=== PATIENT | male | born 1930 | race Caucasian/White ===

== ENCOUNTER 2016-10-06 09:04 | Emergency (ER) | payer OTHER ==
[~2016-10-06] VITALS: Ht 170.2 cm; Wt 100.7 kg
[~2016-10-06 09:04] MED LIST: ASPIRIN EC81 M1 PO; BENICAR40 MG PO; METOPROLOL SUCC25 M1 PO; MULTAQ400 MG PO; NORCO 5-325 TA1 EACH PO; SIMVASTATIN20 MG PO
[2016-10-06 09:44] VITALS: BP 145/63
== END 2016-10-06 09:30 | disposition home or self-care (01) ==
LOC: ER 09:04
DX: S60.562A Insect bite (nonvenomous) of left hand, initial encounter (principal); S60.361A Insect bite (nonvenomous) of right thumb, initial encounter; S00.86XA Insect bite (nonvenomous) of other part of head, initial encounter; I10 Essential (primary) hypertension; J45.909 Unspecified asthma, uncomplicated; I48.91 Unspecified atrial fibrillation; H40.9 Unspecified glaucoma; F10.99 Alcohol use, unspecified with unspecified alcohol-induced disorder; Z87.891 Personal history of nicotine dependence; Z98.890 Other specified postprocedural states; W57.XXXA Bitten or stung by nonvenomous insect and other nonvenomous arthropods, initial encounter; Y93.89 Activity, other specified; Y92.89 Other specified places as the place of occurrence of the external cause; Y99.8 Other external cause status